=== PATIENT | female | born 1970 | race African-American/Black ===

== ENCOUNTER 2022-02-01 20:05 | Observation (INO) ==
[2022-02-01 20:46] LABS: Basophils # 0.1 10*3/uL (0.0-0.2); Basophils % 0.8 % (0.0-0.8); Eosinophils # 0.4 10*3/uL (0.0-0.87); Hematocrit 46.8 VOL% (35.7-47.0); Hemoglobin 15.5 GM/DL (12.0-16.0); Immature Granulocytes % 0.4 %; Immature Granulocytes Absolute 0.04 #; Lymphocytes # 2.7 10*3/uL (1.4-4.0); Lymphocytes % 29.5 % (21.3-54.2); Mean Corpuscular HGB Conc 33.1 GM/DL (32-36); Mean Corpuscular Volume 84.6 FL (87-102); Mean Platelet Volume 10.5 FL (9.6-12.0); Monocytes % 6.6 % (1.7-12.7); Neutrophils % 58.7 % (38.7-73.9); Platelet Count 319 T/CUMM (130-400); Red Blood Count 5.53 MC/CUMM (3.8-5.5); Red Cell Distribution Width 14.6 % (9.3-17.3); White Blood Count 9.1 T/CUMM (4-12)
[2022-02-01 21:02] LABS: Calcium 8.5 MG/DL (8.5-10.1); Osmolality,Calculated 280.3 MOS/KG (273-304); Potassium 3.8 MMOL/L (3.5-5.1)
[2022-02-01 21:11] LABS: Bilirubin,Urine Negative (Negative); Blood, Urine Negative (Negative); Glucose,Urine (UA) 100 mg/dL (Negative); Ketones,Urine Negative (Negative); Nitrite,Urine Negative (Negative); Protein,Urine 100 mg/dL (Negative); Urine Appearance Clear (Clear); Urine Color Yellow (Yellow); Urine Specific Gravity >= 1.030 (1.001-1.035); Urine Urobilinogen 0.2 eU/dL (<2.0)
[2022-02-01 21:13] LABS: Bacteria,Urine Occasional /HPF (Few); Mucus,Urine Occasional /LPF (Occasional); RBC,Urine 2 /HPF (0-4); Squamous Epithelial Cell,Urine Occasional /HPF (0-10)
[2022-02-01 21:55] LABS: PT Patient Result 11.3 SECS (10.5-12.0); Partial Thromboplastin Time 23.2 SECS (23.8-32.1)
[2022-02-02] MEDS ORDERED: ALBUTEROL/IPRATROPIUM 3 ML NEB RESP TX STA (00:59)
[2022-02-02] MEDS ORDERED: GLUCAGON 1 MG VIAL IM PRN (02:32)
[2022-02-02] MEDS ORDERED: hydrALAZINE 20 MG/1 ML VIAL IV PRN (02:32)
[2022-02-02] MEDS ORDERED: MORPHINE 2 MG/1 ML SYRINGE IV PRN (02:32)
[2022-02-02] MEDS ORDERED: DEXTROSE 10% 250 ML BAG IV PRN (02:32)
[2022-02-02] MEDS ORDERED: ONDANSETRON 4 MG/2 ML VIAL IV PRN (02:32)
[2022-02-02] MEDS ORDERED: ACETAMINOPHEN 325 MG TABLET PO PRN (02:32)
[2022-02-02] MEDS ORDERED: ALBUTEROL 2.5 MG/3 ML NEB RESP TX PRN (02:32)
[2022-02-02] MEDS ORDERED: FUROSEMIDE 40 MG/4 ML VIAL IV ONE ×2 (02:47→09:58)
[2022-02-02 02:54] LABS: ABG HCO3 26.1 MMOL/L (20-26); ABG Oxygen Saturation 97.4 % (95-100); ABG PCO2 42.1 MM HG (35-48); ABG PH 7.413 (7.35-7.45); ABG PO2 89.9 MM HG (80-95); ABG TCO2 22.8 MMOL/L (23-27)
[2022-02-02] MEDS ORDERED: ASPIRIN 325 MG TABLET PO STA (03:02)
[2022-02-02 06:01] LABS: Basophils # 0.1 10*3/uL (0.0-0.2); Basophils % 0.7 % (0.0-0.8); Eosinophils # 0.3 10*3/uL (0.0-0.87); Eosinophils % 3.2 % (0.00-10.9); Hematocrit 45.6 VOL% (35.7-47.0); Hemoglobin 15.1 GM/DL (12.0-16.0); Immature Granulocytes % 0.3 %; Immature Granulocytes Absolute 0.03 #; Lymphocytes # 2.8 10*3/uL (1.4-4.0); Lymphocytes % 26.1 % (21.3-54.2); Mean Corpuscular HGB Conc 33.1 GM/DL (32-36); Mean Corpuscular Volume 84.9 FL (87-102); Monocytes % 5.6 % (1.7-12.7); Neutrophils % 64.1 % (38.7-73.9); Platelet Count 309 T/CUMM (130-400); Red Blood Count 5.37 MC/CUMM (3.8-5.5); Red Cell Distribution Width 14.6 % (9.3-17.3); White Blood Count 10.6 T/CUMM (4-12)
[2022-02-02 06:26] LABS: Albumin 3.6 G/DL (3.4-5.0); Bilirubin,Total 0.6 MG/DL (0.20-1.00); Calcium 8.6 MG/DL (8.5-10.1); Osmolality,Calculated 277.5 MOS/KG (273-304); Potassium 3.5 MMOL/L (3.5-5.1); Risk Ratio 2.67; Thyroid Stimulating Hormone 4.83 uIU/ml (0.358-3.74)
[2022-02-02] MEDS: INSULIN LISPRO 100 UNIT/ML SUBCUT SCH ×4 (08:00→21:10)
[2022-02-02] MEDS ORDERED: SPIRONOLACTONE 25 MG TABLET PO SCH (09:00)
[2022-02-02] MEDS: LOSARTAN 25 MG TABLET PO SCH ×2 (10:08→20:10)
[2022-02-02] MEDS: ASPIRIN EC 81 MG TABLET PO SCH (10:08)
[2022-02-02] MEDS: ENOXAPARIN 40 MG/0.4 ML SYRINGE SUBCUT SCH (10:08)
[2022-02-02] MEDS: PANTOPRAZOLE 40 MG TABLET PO SCH (10:09)
[2022-02-02] MEDS: carvediloL 3.125 MG TABLET PO SCH ×2 (10:10→16:23)
[2022-02-02] MEDS: CEFUROXIME 500 MG TABLET PO SCH (20:10)
[2022-02-02] MEDS ORDERED: INSULIN GLARGINE 100 UNIT/ML SUBCUT SCH (21:00)
[2022-02-03 05:44] LABS: Basophils % 0.4 % (0.0-0.8); Eosinophils # 0.3 10*3/uL (0.0-0.87); Eosinophils % 3.2 % (0.00-10.9); Hematocrit 45.9 VOL% (35.7-47.0); Hemoglobin 15.2 GM/DL (12.0-16.0); Immature Granulocytes % 0.4 %; Immature Granulocytes Absolute 0.04 #; Lymphocytes # 2.1 10*3/uL (1.4-4.0); Mean Corpuscular HGB Conc 33.1 GM/DL (32-36); Mean Corpuscular Volume 84.5 FL (87-102); Mean Platelet Volume 11.5 FL (9.6-12.0); Monocytes % 6.5 % (1.7-12.7); Neutrophils % 68.5 % (38.7-73.9); Platelet Count 293 T/CUMM (130-400); Red Blood Count 5.43 MC/CUMM (3.8-5.5); Red Cell Distribution Width 14.6 % (9.3-17.3); White Blood Count 9.8 T/CUMM (4-12)
[2022-02-03 06:20] LABS: Free T4 (Free Thyroxine) 1.11 NG/DL (0.76-1.46)
[2022-02-03 06:28] LABS: Calcium 8.6 MG/DL (8.5-10.1); Osmolality,Calculated 278.7 MOS/KG (273-304); Potassium 3.7 MMOL/L (3.5-5.1)
[2022-02-03] MEDS: ASPIRIN EC 81 MG TABLET PO SCH (09:45)
[2022-02-03] MEDS: carvediloL 3.125 MG TABLET PO SCH (09:45)
[2022-02-03] MEDS: LOSARTAN 25 MG TABLET PO SCH ×2 (09:45→20:20)
[2022-02-03] MEDS: CEFUROXIME 500 MG TABLET PO SCH ×2 (09:45→20:20)
[2022-02-03] MEDS: PANTOPRAZOLE 40 MG TABLET PO SCH (09:45)
[2022-02-03] MEDS: ENOXAPARIN 40 MG/0.4 ML SYRINGE SUBCUT SCH (09:46)
[2022-02-03] MEDS: INSULIN LISPRO 100 UNIT/ML SUBCUT SCH ×4 (09:46→20:20)
[2022-02-03] MEDS: BUDESONIDE/FORMOTEROL 160-4.5 INHALER 6 GM INH SCH ×2 (09:47→20:20)
[2022-02-03] MEDS ORDERED: SPIRONOLACTONE 25 MG TABLET PO SCH (10:30)
[2022-02-03] MEDS: FUROSEMIDE 40 MG TABLET PO SCH (10:54)
[2022-02-03] MEDS: carvediloL 12.5 MG TABLET PO SCH (16:54)
[2022-02-03] MEDS ORDERED: INSULIN GLARGINE 100 UNIT/ML SUBCUT SCH (21:00)
[2022-02-04 05:32] LABS: Basophils # 0.1 10*3/uL (0.0-0.2); Basophils % 0.7 % (0.0-0.8); Eosinophils # 0.4 10*3/uL (0.0-0.87); Eosinophils % 4.2 % (0.00-10.9); Hematocrit 44.6 VOL% (35.7-47.0); Hemoglobin 14.4 GM/DL (12.0-16.0); Immature Granulocytes % 0.5 %; Immature Granulocytes Absolute 0.04 #; Lymphocytes % 22.6 % (21.3-54.2); Mean Corpuscular HGB Conc 32.3 GM/DL (32-36); Mean Corpuscular Volume 85.3 FL (87-102); Mean Platelet Volume 10.7 FL (9.6-12.0); Monocytes % 7.8 % (1.7-12.7); Neutrophils % 64.2 % (38.7-73.9); Platelet Count 286 T/CUMM (130-400); Red Blood Count 5.23 MC/CUMM (3.8-5.5); Red Cell Distribution Width 14.7 % (9.3-17.3); White Blood Count 8.8 T/CUMM (4-12)
[2022-02-04 05:50] LABS: Calcium 8.5 MG/DL (8.5-10.1); Osmolality,Calculated 283.7 MOS/KG (273-304); Potassium 4.1 MMOL/L (3.5-5.1)
[2022-02-04] MEDS: INSULIN LISPRO 100 UNIT/ML SUBCUT SCH ×2 (09:19→13:16)
[2022-02-04] MEDS: ENOXAPARIN 40 MG/0.4 ML SYRINGE SUBCUT SCH (09:19)
[2022-02-04] MEDS: ASPIRIN EC 81 MG TABLET PO SCH (09:20)
[2022-02-04] MEDS: CEFUROXIME 500 MG TABLET PO SCH (09:20)
[2022-02-04] MEDS: carvediloL 12.5 MG TABLET PO SCH (09:20)
[2022-02-04] MEDS: PANTOPRAZOLE 40 MG TABLET PO SCH (09:20)
[2022-02-04] MEDS: FUROSEMIDE 40 MG TABLET PO SCH (09:20)
[2022-02-04] MEDS: LOSARTAN 25 MG TABLET PO SCH (09:20)
[2022-02-04] MEDS: BUDESONIDE/FORMOTEROL 160-4.5 INHALER 6 GM INH SCH (09:21)
[2022-02-04 11:18] VITALS: BP 160/103
== END 2022-02-04 15:29 | disposition home or self-care (01) ==
LOC: N.ED 20:05 → N.EDINP 20:05 → SUATTDRO 02-02 02:32 → N.EDINP 02-02 03:50 → N.TELES 02-02 04:26
PROVIDERS: ADMIT Internal Medicine; ATTEND Phlebology